=== PATIENT | female | born 1990 | race American Indian/Alaskan Native ===

== ENCOUNTER 2021-03-31 04:35 | Emergency (ER) | payer OTHER ==
--- NOTE | 2021-03-31 06:16 | Emergency Department Report ---
HPI - General Chief Complaint: Psych Time Seen by Provider: 03/31/21 06:05 - HPI HPI: Room 16 The patient is a 30-year-old female present with a chief complaint of bizarre behavior. Patient was brought in by EMS after reportedly being found with erratic behavior and crying in the middle of the road. When asked what made her come to the emergency department the patient replies "I called the police on myself." When asked why the patient states "because." When asked if she had suicidal ideation the patient replies "I guess." When asked if she had homicidal ideation patient replies "yes all of y'all." ED Past Medical Hx - Past Medical History Previous Medical History?: Yes Hx Diabetes: Yes Hx Psychiatric Treatment: (bipolar) - Surgical History Additional Surgical History: "Everything" - Family History Family history: no significant - Social History Smoking Status: Never Smoker Substance Use Type: Alcohol - Medications Home Medications: Home Medications Medication Instructions Recorded Confirmed Last Taken Type Divalproex Dr [DepaKOTE DR] 250 mg PO BID 30 Days #60 tablet 04/02/21 Unknown Rx risperiDONE [RisperDAL] 1 mg PO BID 30 Days #60 tablet 04/02/21 Unknown Rx traZODone [Desyrel] 50 mg PO QHS 30 Days #30 tab 04/02/21 Unknown Rx ED Review of Systems ROS: Stated complaint: BEHAVIORAL ISSUES Other details as noted in HPI Comment: Unobtainable due to pts medical conditions Physical Exam - Physical Exam Vital Signs: Vital Signs 03/31/21 03/31/21 03/31/21 05:04 05:14 05:34 Temperature 98.9 F 97.5 F L Pulse Rate 84 64 Respiratory 18 16 Rate Blood Pressure 129/84 106/64 [Left] O2 Sat by Pulse 99 98 100 Oximetry Physical Exam: GENERAL: The patient is well-developed well-nourished female lying on chair not appearing to be in acute distress. [] HEENT: Normocephalic. Atraumatic. Extraocular motions are intact. Patient has moist mucous membranes. NECK: Supple. Trachea midline CHEST/LUNGS: Clear to auscultation. There is no respiratory distress noted. HEART/CARDIOVASCULAR: Regular. There is no tachycardia. There is no gallop rub or murmur. ABDOMEN: Abdomen is soft, nontender. Patient has normal bowel sounds. There is no abdominal distention. SKIN: There is no rash. There is no edema. There is no diaphoresis. NEURO: The patient is awake and alert. The patient is intermittent cooperative. The patient has no focal neurologic deficits. The patient has normal speech. GCS 15 MUSCULOSKELETAL: There is no evidence of acute injury. ED Course Vital Signs 03/31/21 03/31/21 03/31/21 05:04 05:14 05:34 Temperature 98.9 F 97.5 F L Pulse Rate 84 64 Respiratory 18 16 Rate Blood Pressure 129/84 106/64 [Left] O2 Sat by Pulse 99 98 100 Oximetry - Reevaluation(s) Reevaluation #1: 03/31/21 07:01 Patient became combative and threatening to other patients and was subsequently placed in seclusion ED Medical Decision Making - Lab Data Result diagrams: 03/31/21 17:41 03/31/21 17:41 - Differential Diagnosis Bipolar disorder, suicidal ideation, homicidal ideation Critical care attestation.: If time is entered above; I have spent that time in minutes in the direct care of this critically ill patient, excluding procedure time. ED Disposition Clinical Impression: Encounter for behavioral health screening, Left knee pain, Abrasion of left knee, Encounter for medical screening examination Disposition: HOME / SELF CARE / HOMELESS Is pt being admited?: No Does the pt Need Aspirin: No Condition: Stable Additional Instructions: Rest, avoid heavy lifting and strenuous physical activities. Alternate ice packs and heat packs as needed for physical pain. Patient may take over-the- counter ibuprofen and/or acetaminophen as needed for physical pain. Follow-up with an outpatient primary care doctor within the next month. Follow- up with an outpatient psychiatrist and outpatient psychiatric resources within the next 2 weeks. Please return to the emergency room right away with new pain, worsened pain, migration of pain, rectal vomiting, change in mental status, confusion, i nability to tolerate liquid feeds, homicidality, suicidality, change in mental status, or any new, worsened or different symptoms not present on the initial emergency room evaluation. OUTPATIENT MENTAL HEALTH RESOURCES [facility], [facility] Dimas Perea MD: [address] [place] [address] [place] [address] [facility]: [facility] [address] [place] [address] [place] [address] [phone] [facility]: [facility]: [address] [facility] [place] [address] [facility] [address] [facility]: Brett Tripp MD: [address] [facility] [address] [facility] [address] [facility]: [address] [place], [place] [id number] [phone] [place] CRISIS AND ACCESS LINE: Professional and Agency Contacts To help Resolve Crises (26/12) [place] Crisis Line: Suicide Prevention Line: Crisis Text Line: Text START to 856683 Emergency: 911 Outpatient COMMUNITY Behavioral Health Resources: [facility]: [facility] [address] [place], [place] [address] [facility] [address] [place] [address] Monday thru Monday - 8am - 5pm Call to schedule an assessment for mental health and substance abuse programs [facility] Address: [address] [place], [place] Monday thru Monday- 7am-2pm [facility] Address: [address] [place], [place] Monday thru Monday: 8:30AM-5PM Prescriptions: Divalproex Dr [DepaKOTE DR] 250 mg PO BID 30 Days #60 tablet traZODone [Desyrel] 50 mg PO QHS 30 Days #30 tab risperiDONE [RisperDAL] 1 mg PO BID 30 Days #60 tablet Referrals: [facility] [Outside[facility] - 3-5 Days [facility]
[2021-03-31 07:04] LABS: Bilirubin,Urine NEG (Negative); Blood,Urine NEG (Negative); Color,Urine Yellow (Yellow); Protein,Urine <15 mg/dL mg/dL (Negative); RBC,Urine < 1.0 /HPF (0.0-6.0); Urobilinogen,Urine < 2.0 mg/dL (<2.0)
[2021-03-31 07:13] LABS: Amphetamine Screen,Urine Negative; Benzodiazepines Screen,Urine Negative; Cannabinoid Screen,Urine Negative; Cocaine Screen,Urine Negative; Methadone Screen,Urine Negative; Opiate Screen,Urine Negative
[2021-03-31] MEDS: diphenhydrAMINE 50 MG/ML VIAL IM PRN (09:05)
[2021-03-31] MEDS: LORazepam 2 MG/ML VIAL IM PRN (09:05)
[2021-03-31] MEDS: HALOPERIDOL LACTATE 5 MG/1 ML INJ IM PRN (09:05)
--- NOTE | 2021-03-31 10:43 | Consultation ---
History of Present Illness - Reason for Consult Consult date: 03/31/21 Reason for consult: psychosis - History of Present Psychiatric Illness Per ER Note: The patient is a 30-year-old female present with a chief complaint of bizarre behavior. Patient was brought in by EMS after reportedly being found with erratic behavior and crying in the middle of the road. When asked what made her come to the emergency department the patient replies "I called the police on myself." When asked why the patient states "because." When asked if she had suicidal ideation the patient replies "I guess." When asked if she had homicidal ideation patient replies "yes all of y'all." The patient was seen today. She is in the isolation room, yelling, cussing and acting bizarrely. The sitter says the patient has been combative with everybody and advised me not to open the door. The patient says "I have a head cold and I'm suing." She is bucking her eyes and pacing back and forth. PAST PSYCHIATRIC HISTORY: Unable to assess PAST MEDICAL HISTORY: None documented Family Psychiatric History: None reported or documented SOCIAL HISTORY Unable to assess REVIEW OF SYSTEMS Unable to assess MENTAL STATUS EXAMINATION Unable to assess Assessment and Plan (1) Bipolar Disorder TREATMENT PLAN [address] 125mg po BID Risperidone 0.5mg po BID Trazdone 50mg po qhs Sitter: per primary Medical: per primary Disposition: Recommend acute psychiatric inpatient treatment Case staffed with Dr. Munguia Medications and Allergies Allergies Allergy/AdvReac Type Severity Reaction Status Date / Time No Known Allergies Allergy Verified 03/31/21 05:05 Active Meds: Active Medications Diphenhydramine HCl (Diphenhydramine 50 Mg/Ml Vial) 50 mg IM Q6H PRN PRN Reason: Agitation Last Admin: 03/31/21 09:05 Dose: 50 mg Documented by: Haloperidol Lactate (Haloperidol Lactate 5 Mg/1 Ml Inj) 10 mg IM Q8H PRN PRN Reason: Agitation Last Admin: 03/31/21 09:05 Dose: 10 mg Documented by: Lorazepam (Lorazepam 2 Mg/Ml Vial) 2 mg IM Q8H PRN PRN Reason: Agitation Last Admin: 03/31/21 09:05 Dose: 2 mg Documented by: Mental Status Exam - Vital signs Last Vital Signs Temp 97.5 F L 03/31/21 05:34 Pulse 64 03/31/21 05:34 Resp 16 03/31/21 05:34 BP 106/64 03/31/21 05:34 Pulse Ox 100 03/31/21 09:32 Results All other labs normal.
[2021-03-31] MEDS: risperiDONE 0.25 MG TAB PO SCH ×2 (11:17→22:22)
[2021-03-31] MEDS: DIVALPROEX DR 125 MG TAB PO SCH ×2 (11:17→22:21)
[2021-03-31 17:57] LABS: Basophils % (Auto) 0.2 % (0.0-1.8); Eosinophils # (Auto) 0.3 K/mm3 (0.0-0.4); Eosinophils % (Auto) 3.9 % (0.0-4.3); Hematocrit 42.8 % (30.3-42.9); Hemoglobin 14.1 gm/dl (10.1-14.3); Lymphocytes % (Auto) 24.1 % (13.4-35.0); Mean Corpuscular HGB Conc 33 % (30-34); Mean Corpuscular Volume 91 fl (79-97); Monocytes # (Auto) 0.7 K/mm3 (0.0-0.8); Monocytes % (Auto) 8.6 % (0.0-7.3); Platelet Count 388 K/mm3 (140-440); Red Blood Count 4.68 M/mm3 (3.65-5.03); Red Cell Distribution Width 13.5 % (13.2-15.2)
[2021-03-31 18:17] LABS: BUN/Creatinine Ratio 13; Blood Urea Nitrogen 10 mg/dL (7-17); Calcium 9.2 mg/dL (8.4-10.2); Hemolysis Index 5
[2021-03-31] MEDS: traZODone 50 MG TAB PO SCH (22:21)
[2021-04-01] MEDS: LORazepam 2 MG/ML VIAL IM PRN (07:43)
[2021-04-01] MEDS: diphenhydrAMINE 50 MG/ML VIAL IM PRN (07:44)
[2021-04-01] MEDS: HALOPERIDOL LACTATE 5 MG/1 ML INJ IM PRN (07:44)
--- NOTE | 2021-04-01 08:45 | Progress Note ---
Subjective - Reason for Consult Consult date: 04/01/21 Reason for consult: psychosis - Chief Complaint Chief complaint: The patient was seen today. She is talking loudly, rude and cussing. She acts somewhat bizarre. She says I'm not doing well. She is sarcastic and argumentative. The patient is paranoid and says she's not talking any meds because she doesn't trust people here. She says she was brought to the hospital because she was driving in the street and could not get anyone to call the dispatcher. The patient states she is legally blind. When asking the patient was she hearing voices she replied "very much." She denies SI/HI. REVIEW OF SYSTEMS Unable to assess MENTAL STATUS EXAMINATION Unable to assess Assessment and Plan (1) Bipolar Disorder TREATMENT PLAN [address] 250mg po BID Increase Risperidone 1mg po BID Trazdone 50mg po qhs Sitter: per primary Medical: per primary Disposition: Recommend acute psychiatric inpatient treatment Case staffed with Dr. Munguia Mental Status Exam - Vital signs Last Vital Signs Temp 98 F 03/31/21 18:46 Pulse 89 03/31/21 18:46 Resp 18 03/31/21 18:46 BP 137/92 03/31/21 18:46 Pulse Ox 100 03/31/21 18:46
[2021-04-01] MEDS ORDERED: ZIPRASIDONE MESYLATE 20 MG VIAL IM ONE ×2 (10:25→18:03)
--- NOTE | 2021-04-01 10:25 | Event Note ---
Date: 04/01/21 Patient seen by our psychiatry team as well as myself. Patient still very agitated and difficult to control. Prior to my arrival at the hospital patient already received Haldol Ativan Benadryl and was still very verbally aggressive and showing poor control in the emergency department. We will give the patient IM shot of 20 of Geodon. The patient continues to exhibit uncontrollable behavior seclusion may be necessary. Psychiatry note as follows: Psychiatry Progress Note Patient Name: TORI TRAMMELL Date of : 89 Patient Status: Emergency Emergency Provider: SANCHEZ STEINER Date: 04/01/21 08:43 Initialization Date: 04/01/21 08:43 Subjective - Reason for Consult Consult date: 04/01/21 Reason for consult: psychosis - Chief Complaint Chief complaint: The patient was seen today. She is talking loudly, rude and cussing. She acts somewhat bizarre. She says I'm not doing well. She is sarcastic and argumentative. The patient is paranoid and says she's not talking any meds because she doesn't trust people here. She says she was brought to the hospital because she was driving in the street and could not get anyone to call the dispatcher. The patient states she is legally blind. When asking the patient was she hearing voices she replied "very much." She denies SI/HI. REVIEW OF SYSTEMS Unable to assess MENTAL STATUS EXAMINATION Unable to assess Assessment and Plan (1) Bipolar Disorder TREATMENT PLAN [address] 250mg po BID Increase Risperidone 1mg po BID Trazdone 50mg po qhs Sitter: per primary Medical: per primary Disposition: Recommend acute psychiatric inpatient treatment Case staffed with Dr. Munguia
[2021-04-01] MEDS: DIVALPROEX DR 250 MG TAB PO SCH ×2 (11:08→23:14)
[2021-04-01] MEDS: risperiDONE 1 MG TAB PO SCH ×2 (11:08→23:14)
[2021-04-01] MEDS ORDERED: NALOXONE 0.4 MG/1 ML INJ ONE (15:29)
[2021-04-01] MEDS ORDERED: SODIUM CHLORIDE 0.9% 1000 ML 1,000 ML ONE (17:00)
[2021-04-01] MEDS: traZODone 50 MG TAB PO SCH (23:14)
[2021-04-02] MEDS: HALOPERIDOL LACTATE 5 MG/1 ML INJ IM PRN (02:00)
--- NOTE | 2021-04-02 11:07 | Event Note ---
Date: 04/02/21 The patient was evaluated in the emergency department for symptoms described in the history of present illness. He/she was evaluated in the context of the global COVID-19 pandemic, which necessitated consideration that the patient might be at risk for infection with the virus that causes COVID-19. Institutional protocols and algorithms that pertain to the evaluation of patients at risk for COVID-19 are in a state of rapid change based on information released by regulatory bodies including the CDC and federal and state organizations. These policies and algorithms were followed during the patient's care in the emergency department. Please note that these policies, procedures and recommendations changed on a rapid basis. Patient seen and examined. She is awake, and talkative.. She complains of left-sided knee pain. She has a left-sided knee abrasion. She has tenderness in the anterior and lateral joint line of the knee. She is able to walk with a slight limp. She states she is up-to-date with tetanus vaccination. X-ray of the left knee is ordered. Laboratory studies, vital signs, ER documentation, psychiatric documentation and nursing documentation reviewed and appreciated. Nursing and care team endorse that the patient remains psychotic, and somewhat agitated. However she is cooperative at this time, and not nicholas lent. Psychiatric input reviewed and appreciated, their recommendations are appreciated. 04/02/2021; 13: 24 PM X-ray of the knee negative for acute findings. Psychiatry team has recommended discharge. The patient was medically cleared on her initial ER evaluation. Discharge with outpatient follow-up Left knee-3 views INDICATION: left knee pain. COMPARISON: None. IMPRESSION: No acute osseous abnormality. Soft tissues are normal. Normal alignment. No significant DJD. Signer Name: August Smith MD Signed: 04/02/2021 11:15 AM Workstation Name: [id number] Vital Signs 03/31/21 03/31/21 03/31/21 05:04 05:14 05:34 Temperature 98.9 F 97.5 F L Pulse Rate 84 64 Respiratory 18 16 Rate Blood Pressure 129/84 106/64 [Left] O2 Sat by Pulse 99 98 100 Oximetry 03/31/21 03/31/21 04/01/21 09:32 18:46 07:30 Temperature 98 F 98.5 F Pulse Rate 89 93 H Respiratory 18 18 Rate Blood Pressure 137/92 139/81 [Left] O2 Sat by Pulse 100 100 100 Oximetry 04/02/21 02:57 Temperature 98.3 F Pulse Rate 82 Respiratory 18 Rate Blood Pressure 143/78 [Left] O2 Sat by Pulse 97 Oximetry Lab Results 03/31/21 03/31/21 03/31/21 Range/Units 17:41 17:41 17:41 WBC 8.2 (4.5-11.0) K/mm3 RBC 4.68 (3.65-5.03) M/mm3 Hgb 14.1 (10.1-14.3) gm/dl Hct 42.8 (30.3-42.9) % MCV 91 (79-97) fl MCH 30 (28-32) pg MCHC 33 (30-34) % RDW 13.5 (13.2-15.2) % Plt Count 388 (140-440) K/mm3 Lymph % (Auto) 24.1 (13.4-35.0) % [place] % (Auto) 8.6 H (0.0-7.3) % Eos % (Auto) 3.9 (0.0-4.3) % Baso % (Auto) 0.2 (0.0-1.8) % Lymph # (Auto) 2.0 (1.2-5.4) K/mm3 [place] # (Auto) 0.7 (0.0-0.8) K/mm3 Eos # (Auto) 0.3 (0.0-0.4) K/mm3 Baso # (Auto) 0.0 (0.0-0.1) K/mm3 Seg Neutrophils % 63.2 (40.0-70.0) % Seg Neutrophils # 5.2 (1.8-7.7) K/mm3 Sodium 140 (137-145) mmol/L Potassium 4.1 (3.6-5.0) mmol/L Chloride 102.8 (98-107) mmol/L Carbon Dioxide 24 (22-30) mmol/L Anion Gap 17 mmol/L BUN 10 (7-17) mg/dL Creatinine 0.8 (0.6-1.2) mg/dL Estimated GFR > 60 ml/min BUN/Creatinine Ratio 13 % Glucose 110 H (65-100) mg/dL POC Glucose (70-105) mg/dL Calcium 9.2 (8.4-10.2) mg/dL HCG, Qual (Negative) Urine Color (Yellow) Urine Turbidity (Clear) Urine pH (5.0-7.0) Ur Specific [place] (1.003-1.030) Urine Protein (Negative) mg/dL Urine Glucose (UA) (Negative) mg/dL Urine Ketones (Negative) mg/dL Urine Blood (Negative) Urine Nitrite (Negative) Urine Bilirubin (Negative) Urine Urobilinogen (<2.0) mg/dL Ur Leukocyte Esterase (Negative) Urine WBC (Auto) (0.0-6.0) /HPF Urine RBC (Auto) (0.0-6.0) /HPF U Epithel Cells (Auto) (0-13.0) /HPF Salicylates < 0.3 L (2.8-20.0) mg/dL Urine Opiates Screen Urine Methadone Screen Acetaminophen (10.0-30.0) ug/mL Ur Barbiturates Screen Ur Phencyclidine Scrn Ur Amphetamines Screen U Benzodiazepines Scrn Urine Cocaine Screen U Marijuana (THC) Screen Drugs of Abuse Note Plasma/Serum Alcohol (0-0.07) % 03/31/21 03/31/21 03/31/21 Range/Units 17:41 17:41 Unknown WBC (4.5-11.0) K/mm3 RBC (3.65-5.03) M/mm3 Hgb (10.1-14.3) gm/dl Hct (30.3-42.9) % MCV (79-97) fl MCH (28-32) pg MCHC (30-34) % RDW (13.2-15.2) % Plt Count (140-440) K/mm3 Lymph % (Auto) (13.4-35.0) % [place] % (Auto) (0.0-7.3) % Eos % (Auto) (0.0-4.3) % Baso % (Auto) (0.0-1.8) % Lymph # (Auto) (1.2-5.4) K/mm3 [place] # (Auto) (0.0-0.8) K/mm3 Eos # (Auto) (0.0-0.4) K/mm3 Baso # (Auto) (0.0-0.1) K/mm3 Seg Neutrophils % (40.0-70.0) % Seg Neutrophils # (1.8-7.7) K/mm3 Sodium (137-145) mmol/L Potassium (3.6-5.0) mmol/L Chloride (98-107) mmol/L Carbon Dioxide (22-30) mmol/L Anion Gap mmol/L BUN (7-17) mg/dL Creatinine (0.6-1.2) mg/dL Estimated GFR ml/min BUN/Creatinine Ratio % Glucose (65-100) mg/dL POC Glucose (70-105) mg/dL Calcium (8.4-10.2) mg/dL HCG, Qual (Negative) Urine Color Yellow (Yellow) Urine Turbidity Clear (Clear) Urine pH 6.0 (5.0-7.0) Ur Specific Hen[place] 1.012 (1.003-1.030) Urine Protein <15 mg/dl (Negative) mg/dL Urine Glucose (UA) Neg (Negative) mg/dL Urine Ketones Neg (Negative) mg/dL Urine Blood Neg (Negative) Urine Nitrite Neg (Negative) Urine Bilirubin Neg (Negative) Urine Urobilinogen < 2.0 (<2.0) mg/dL Ur Leukocyte Esterase Neg (Negative) Urine WBC (Auto) 1.0 (0.0-6.0) /HPF Urine RBC (Auto) < 1.0 (0.0-6.0) /HPF U Epithel Cells (Auto) 1.0 (0-13.0) /HPF Salicylates (2.8-20.0) mg/dL Urine Opiates Screen Urine Methadone Screen Acetaminophen 5.0 L (10.0-30.0) ug/mL Ur Barbiturates Screen Ur Phencyclidine Scrn Ur Amphetamines Screen U Benzodiazepines Scrn Urine Cocaine Screen U Marijuana (THC) Screen Drugs of Abuse Note Plasma/Serum Alcohol < 0.01 (0-0.07) % 03/31/21 03/31/21 04/02/21 Range/Units Unknown Unknown 08:56 WBC (4.5-11.0) K/mm3 RBC (3.65-5.03) M/mm3 Hgb (10.1-14.3) gm/dl Hct (30.3-42.9) % MCV (79-97) fl MCH (28-32) pg MCHC (30-34) % RDW (13.2-15.2) % Plt Count (140-440) K/mm3 Lymph % (Auto) (13.4-35.0) % [place] % (Auto) (0.0-7.3) % Eos % (Auto) (0.0-4.3) % Baso % (Auto) (0.0-1.8) % Lymph # (Auto) (1.2-5.4) K/mm3 [place] # (Auto) (0.0-0.8) K/mm3 Eos # (Auto) (0.0-0.4) K/mm3 Baso # (Auto) (0.0-0.1) K/mm3 Seg Neutrophils % (40.0-70.0) % Seg Neutrophils # (1.8-7.7) K/mm3 Sodium (137-145) mmol/L Potassium (3.6-5.0) mmol/L Chloride (98-107) mmol/L Carbon Dioxide (22-30) mmol/L Anion Gap mmol/L BUN (7-17) mg/dL Creatinine (0.6-1.2) mg/dL Estimated GFR ml/min BUN/Creatinine Ratio % Glucose (65-100) mg/dL POC Glucose 86 (70-105) mg/dL Calcium (8.4-10.2) mg/dL HCG, Qual Negative (Negative) Urine Color (Yellow) Urine Turbidity (Clear) Urine pH (5.0-7.0) Ur Specific [place] (1.003-1.030) Urine Protein (Negative) mg/dL Urine Glucose (UA) (Negative) mg/dL Urine Ketones (Negative) mg/dL Urine Blood (Negative) Urine Nitrite (Negative) Urine Bilirubin (Negative) Urine Urobilinogen (<2.0) mg/dL Ur Leukocyte Esterase (Negative) Urine WBC (Auto) (0.0-6.0) /HPF Urine RBC (Auto) (0.0-6.0) /HPF U Epithel Cells (Auto) (0-13.0) /HPF Salicylates (2.8-20.0) mg/dL Urine Opiates Screen Negative Urine Methadone Screen Negative Acetaminophen (10.0-30.0) ug/mL Ur Barbiturates Screen Negative Ur Phencyclidine Scrn Negative Ur Amphetamines Screen Negative U Benzodiazepines Scrn Negative Urine Cocaine Screen Negative U Marijuana (THC) Screen Negative Drugs of Abuse Note Disclamer Plasma/Serum Alcohol (0-0.07) %
--- NOTE | 2021-04-02 12:19 | XRay Report ---
Left knee-3 views INDICATION: left knee pain. COMPARISON: None. IMPRESSION: No acute osseous abnormality. Soft tissues are normal. Normal alignment. No significa nt DJD. Signer Name: August Smith MD Signed: 04/02/2021 12:15 PM Workstation Name: [id number]
--- NOTE | 2021-04-02 12:30 | Progress Note ---
Subjective - Reason for Consult Consult date: 04/02/21 Reason for consult: mental health evaluation - Chief Complaint Chief complaint: The patient was seen today. She is talkative and loud. The patient denies any current suicidal/homicidal ideation and denies hallucination. No aggressive behaviors reported. REVIEW OF SYSTEMS Unable to assess MENTAL STATUS EXAMINATION Unable to assess Assessment and Plan (1) Bipolar Disorder TREATMENT PLAN Discontinue [address] 250mg po BID Increase Risperidone 1mg po BID Trazdone 50mg po qhs Sitter: per primary Medical: per primary Disposition:Do not recommend acute psychiatric inpatient treatment. Product Scientist will provide patient with psychiatry outpatient resources. Will sign off. Case staffed with Dr. Munguia Mental Status Exam - Vital signs Last Vital Signs Temp 98.3 F 04/02/21 02:57 Pulse 82 04/02/21 02:57 Resp 20 04/02/21 02:57 BP 143/78 04/02/21 02:57 Pulse Ox 97 04/02/21 02:57
[2021-04-02] MEDS: DIVALPROEX DR 250 MG TAB PO SCH (12:34)
[2021-04-02] MEDS: risperiDONE 1 MG TAB PO SCH (12:35)
[2021-04-02 13:18] VITALS: BP 116/68
== END 2021-04-02 13:24 | disposition home or self-care (01) ==
LOC: EEVIPCON 04:35 → ED 04:35
DX: S80.212A Abrasion, left knee, initial encounter (principal); F31.9 Bipolar disorder, unspecified; Z13.30 Encounter for screening examination for mental health and behavioral disorders, unspecified; E11.8 Type 2 diabetes mellitus with unspecified complications; X58.XXXA Exposure to other specified factors, initial encounter; Y93.89 Activity, other specified; Y92.89 Other specified places as the place of occurrence of the external cause; Y99.8 Other external cause status
CPT/HCPCS: 36415; 73562; 80048; 80307; 81001; 82962; 84703; 85025; 96372; 99285; J1200; J1630; J2060; J2310; J3486; J7030; 80320; G0480

== ENCOUNTER 2021-04-10 16:20 | Emergency (ER) | payer OTHER ==
[2021-04-10] MEDS ORDERED: ZIPRASIDONE MESYLATE 20 MG VIAL IM ONE ×2 (16:22→16:36)
[2021-04-10 17:31] LABS: Basophils % (Auto) 0.3 % (0.0-1.8); Eosinophils # (Auto) 0.1 K/mm3 (0.0-0.4); Eosinophils % (Auto) 2.3 % (0.0-4.3); Hematocrit 38.6 % (30.3-42.9); Hemoglobin 12.9 gm/dl (10.1-14.3); Lymphocytes # (Auto) 0.8 K/mm3 (1.2-5.4); Lymphocytes % (Auto) 14.5 % (13.4-35.0); Mean Corpuscular HGB Conc 33 % (30-34); Mean Corpuscular Volume 90 fl (79-97); Monocytes # (Auto) 0.4 K/mm3 (0.0-0.8); Monocytes % (Auto) 7.9 % (0.0-7.3); Platelet Count 334 K/mm3 (140-440); Red Blood Count 4.29 M/mm3 (3.65-5.03); Red Cell Distribution Width 13.2 % (13.2-15.2)
[2021-04-10 17:55] LABS: Alanine Aminotransferase 28 units/L (7-56); BUN/Creatinine Ratio 7; Blood Urea Nitrogen 6 mg/dL (7-17); Calcium 8.8 mg/dL (8.4-10.2); Hemolysis Index 14
[2021-04-10 18:20] LABS: Amphetamine Screen,Urine Negative; Benzodiazepines Screen,Urine Negative; Cocaine Screen,Urine Negative; Methadone Screen,Urine Negative; Opiate Screen,Urine Negative
[2021-04-10 18:36] LABS: Mucus,Urine 2+ /HPF
[2021-04-10 18:40] LABS: Color,Urine Yellow (Yellow)
[2021-04-10 18:41] LABS: Bilirubin,Urine Negative (Negative); Blood,Urine Small (Negative); Urobilinogen,Urine < 2.0 mg/dL (<2.0)
[2021-04-10 18:49] LABS: Cannabinoid Screen,Urine Positive
--- NOTE | 2021-04-10 19:18 | Emergency Department Report ---
ED Psych HPI - General Chief Complaint: Psych Stated Complaint: 03/17 Time Seen by Provider: 04/10/21 16:35 Source: patient, EMS Mode of arrival: Ambulatory - History of Present Illness Initial Comments: Chief complaint abnormal behavior HPI: This is a 30-year-old female with history of bipolar disorder, diabetes mellitus who presents with abnormal behavior. Police officers presented twice to patient's home. Earlier in the day, patient called police. She accused her on stealing money. On told police officers that she had abnormal behavior. Police return to the home after being called again. Her behavior escalated. Police officers noticed that she was beginning persons not present. She was extremely agitated and aggressive. She arrived in handcuffs. She was recently evaluated at this hospital for bipolar disorder. Patient will not cooperate with history taking. 1013 form completed by CARLOS in [facility] Complaint: altered mental status -: Gradual, days(s) (Over the past several days) Associated Psychiatric Symptoms: racing thoughts, auditory hallucinations Quality: constant Improves With: none Worsens With: none Context: other Treatments Prior to Arrival: physical restraints (Handcuffs per police officers) - Related Data Previous Rx's Medication Instructions Recorded Last Taken Type Divalproex Dr [DepaKOTE DR] 250 mg PO BID 30 Days #60 tablet 04/02/21 Unknown Rx risperiDONE [RisperDAL] 1 mg PO BID 30 Days #60 tablet 04/02/21 Unknown Rx traZODone [Desyrel] 50 mg PO QHS 30 Days #30 tab 04/02/21 Unknown Rx Allergies Allergy/AdvReac Type Severity Reaction Status Date / Time No Known Allergies Allergy Verified 03/31/21 05:05 ED Review of Systems ROS: Stated complaint: 03/17 Other details as noted in HPI Comment: Unobtainable due to pts medical conditions (Patient would not guilherme ate) ED Past Medical Hx - Past Medical History Previous Medical History?: Yes Hx Diabetes: Yes Hx Psychiatric Treatment: Yes (bipolar) - Surgical History Additional Surgical History: "Everything" - Social History Smoking Status: Never Smoker Substance Use Type: Alcohol - Medications Home Medications: Home Medications Medication Instructions Recorded Confirmed Last Taken Type Divalproex Dr [DepaKOTE DR] 250 mg PO BID 30 Days #60 tablet 04/02/21 Unknown Rx risperiDONE [RisperDAL] 1 mg PO BID 30 Days #60 tablet 04/02/21 Unknown Rx traZODone [Desyrel] 50 mg PO QHS 30 Days #30 tab 04/02/21 Unknown Rx ED Physical Exam - General Limitations: Altered Mental Status General appearance: alert, other (Agitated hyperactive walking around the department with hands cuffed behind her back) - Head Head exam: Present: atraumatic, normocephalic - Eye Eye exam: Present: normal appearance - ENT ENT exam: Present: mucous membranes moist - Neck Neck exam: Present: normal inspection, full ROM - Respiratory Respiratory exam: Present: normal lung sounds bilaterally. Absent: respiratory distress, wheezes, rales, rhonchi - Cardiovascular Cardiovascular Exam: Present: regular rate, normal rhythm, normal heart sounds. Absent: systolic murmur, diastolic murmur, rubs, gallop - GI/Abdominal GI/Abdominal exam: Present: soft, normal bowel sounds. Absent: distended, tenderness, guarding, rebound - Extremities Exam Extremities exam: Present: normal inspection - Back Exam Back exam: Present: normal inspection - Neurological Exam Neurological exam: Present: alert, other (Oriented to place and name) - Psychiatric Psychiatric exam: Present: agitated, manic, other (Pressured circular speech, she speaks on multiple subjects) - Skin Skin exam: Present: warm, dry, intact, normal color. Absent: rash ED Course Vital Signs 04/10/21 04/10/21 04/11/21 19:02 23:23 02:58 Temperature 98.0 F Pulse Rate 76 76 Respiratory 18 16 Rate Blood Pressure 120/93 119/80 [Right] O2 Sat by Pulse 97 98 100 Oximetry 04/11/21 09:01 Temperature Pulse Rate Respiratory Rate Blood Pressure [Right] O2 Sat by Pulse 95 Oximetry - Reevaluation(s) Reevaluation #1: 04/11/21 11:31 I evaluated Ms. Chavez today. She is alert oriented x4. She is comfortable. She denies suicidal homicidal ideation. She denies any intent to harm. I agree with mental health team's assessment. She is stable for discharge. She is pleasant and cooperative. I have provided discharge documentation disposition. ED Medical Decision Making - Lab Data Result diagrams: 04/10/21 16:45 04/10/21 16:45 Laboratory Results - last 24 hr 04/10/21 04/10/21 04/10/21 16:45 16:45 16:45 WBC 5.3 RBC 4.29 Hgb 12.9 Hct 38.6 MCV 90 MCH 30 MCHC 33 RDW 13.2 Plt Count 334 Lymph % (Auto) 14.5 [place] % (Auto) 7.9 H Eos % (Auto) 2.3 Baso % (Auto) 0.3 Lymph # (Auto) 0.8 L [place] # (Auto) 0.4 Eos # (Auto) 0.1 Baso # (Auto) 0.0 Seg Neutrophils % 75.0 H Seg Neutrophils # 4.0 Sodium 142 Potassium 3.6 Chloride 107.0 Carbon Dioxide 21 L Anion Gap 18 BUN 6 L Creatinine 0.9 Estimated GFR > 60 BUN/Creatinine Ratio 7 Glucose 185 H Calcium 8.8 Total Bilirubin 0.50 AST 26 ALT 28 Alkaline Phosphatase 72 Total Protein 7.4 Albumin 4.0 Albumin/Globulin Ratio 1.2 HCG, Qual Urine Color Urine Turbidity Urine pH Ur Specific [place] Urine Protein Urine Glucose (UA) Urine Ketones Urine Blood Urine Nitrite Ur Reducing Substances Urine Bilirubin Urine Ictotest Urine Urobilinogen Ur Leukocyte Esterase Urine WBC (Auto) Urine RBC (Auto) U Epithel Cells (Auto) Urine Mucus Salicylates < 0.3 L Urine Opiates Screen Urine Methadone Screen Acetaminophen Ur Barbiturates Screen Ur Phencyclidine Scrn Ur Amphetamines Screen U Benzodiazepines Scrn Urine Cocaine Screen U Marijuana (THC) Screen Drugs of Abuse Note Plasma/Serum Alcohol 04/10/21 04/10/21 04/10/21 16:45 16:45 16:45 WBC RBC Hgb Hct MCV MCH MCHC RDW Plt Count Lymph % (Auto) [place] % (Auto) Eos % (Auto) Baso % (Auto) Lymph # (Auto) [place] # (Auto) Eos # (Auto) Baso # (Auto) Seg Neutrophils % Seg Neutrophils # Sodium Potassium Chloride Carbon Dioxide Anion Gap BUN Creatinine Estimated GFR BUN/Creatinine Ratio Glucose Calcium Total Bilirubin AST ALT Alkaline Phosphatase Total Protein Albumin Albumin/Globulin Ratio HCG, Qual Negative Urine Color Urine Turbidity Urine pH Ur Specific [place] Urine Protein Urine Glucose (UA) Urine Ketones Urine Blood Urine Nitrite Ur Reducing Substances Urine Bilirubin Urine Ictotest Urine Urobilinogen Ur Leukocyte Esterase Urine WBC (Auto) Urine RBC (Auto) U Epithel Cells (Auto) Urine Mucus Salicylates Urine Opiates Screen Urine Methadone Screen Acetaminophen 5.0 L Ur Barbiturates Screen Ur Phencyclidine Scrn Ur Amphetamines Screen U Benzodiazepines Scrn Urine Cocaine Screen U Marijuana (THC) Screen Drugs of Abuse Note Plasma/Serum Alcohol < 0.01 04/10/21 04/10/21 Unknown Unknown WBC RBC Hgb Hct MCV MCH MCHC RDW Plt Count Lymph % (Auto) [place] % (Auto) Eos % (Auto) Baso % (Auto) Lymph # (Auto) [place] # (Auto) Eos # (Auto) Baso # (Auto) Seg Neutrophils % Seg Neutrophils # Sodium Potassium Chloride Carbon Dioxide Anion Gap BUN Creatinine Estimated GFR BUN/Creatinine Ratio Glucose Calcium Total Bilirubin AST ALT Alkaline Phosphatase Total Protein Albumin Albumin/Globulin Ratio HCG, Qual Urine Color Yellow Urine Turbidity Hazy Urine pH 6.0 Ur Specific [place] 1.020 Urine Protein 30 mg/dl Urine Glucose (UA) Negative Urine Ketones Negative Urine Blood Small A Urine Nitrite Negative Ur Reducing Substances Not Reportable Urine Bilirubin Negative Urine Ictotest Not Reportable Urine Urobilinogen < 2.0 Ur Leukocyte Esterase Negative Urine WBC (Auto) 12.0 H Urine RBC (Auto) 4.0 U Epithel Cells (Auto) 31.0 H Urine Mucus 2+ Salicylates Urine Opiates Screen Negative Urine Methadone Screen Negative Acetaminophen Ur Barbiturates Screen Negative Ur Phencyclidine Scrn Negative Ur Amphetamines Screen Negative U Benzodiazepines Scrn Negative Urine Cocaine Screen Negative U Marijuana (THC) Screen Positive Drugs of Abuse Note Disclamer Plasma/Serum Alcohol Laboratory Results - last 24 hr 04/10/21 04/10/21 04/10/21 16:45 16:45 16:45 WBC 5.3 RBC 4.29 Hgb 12.9 Hct 38.6 MCV 90 MCH 30 MCHC 33 RDW 13.2 Plt Count 334 Lymph % (Auto) 14.5 [place] % (Auto) 7.9 H Eos % (Auto) 2.3 Baso % (Auto) 0.3 Lymph # (Auto) 0.8 L [place] # (Auto) 0.4 Eos # (Auto) 0.1 Baso # (Auto) 0.0 Seg Neutrophils % 75.0 H Seg Neutrophils # 4.0 Sodium 142 Potassium 3.6 Chloride 107.0 Carbon Dioxide 21 L Anion Gap 18 BUN 6 L Creatinine 0.9 Estimated GFR > 60 BUN/Creatinine Ratio 7 Glucose 185 H Calcium 8.8 Total Bilirubin 0.50 AST 26 ALT 28 Alkaline Phosphatase 72 Total Protein 7.4 Albumin 4.0 Albumin/Globulin Ratio 1.2 HCG, Qual Urine Color Urine Turbidity Urine pH Ur Specific [place] Urine Protein Urine Glucose (UA) Urine Ketones Urine Blood Urine Nitrite Ur Reducing Substances Urine Bilirubin Urine Ictotest Urine Urobilinogen Ur Leukocyte Esterase Urine WBC (Auto) Urine RBC (Auto) U Epithel Cells (Auto) Urine Mucus Salicylates < 0.3 L Urine Opiates Screen Urine Methadone Screen Acetaminophen Ur Barbiturates Screen Ur Phencyclidine Scrn Ur Amphetamines Screen U Benzodiazepines Scrn Urine Cocaine Screen U Marijuana (THC) Screen Drugs of Abuse Note Plasma/Serum Alcohol 04/10/21 04/10/21 04/10/21 16:45 16:45 16:45 WBC RBC Hgb Hct MCV MCH MCHC RDW Plt Count Lymph % (Auto) [place] % (Auto) Eos % (Auto) Baso % (Auto) Lymph # (Auto) [place] # (Auto) Eos # (Auto) Baso # (Auto) Seg Neutrophils % Seg Neutrophils # Sodium Potassium Chloride Carbon Dioxide Anion Gap BUN Creatinine Estimated GFR BUN/Creatinine Ratio Glucose Calcium Total Bilirubin AST ALT Alkaline Phosphatase Total Protein Albumin Albumin/Globulin Ratio HCG, Qual Negative Urine Color Urine Turbidity Urine pH Ur Specific [place] Urine Protein Urine Glucose (UA) Urine Ketones Urine Blood Urine Nitrite Ur Reducing Substances Urine Bilirubin Urine Ictotest Urine Urobilinogen Ur Leukocyte Esterase Urine WBC (Auto) Urine RBC (Auto) U Epithel Cells (Auto) Urine Mucus Salicylates Urine Opiates Screen Urine Methadone Screen Acetaminophen 5.0 L Ur Barbiturates Screen Ur Phencyclidine Scrn Ur Amphetamines Screen U Benzodiazepines Scrn Urine Cocaine Screen U Marijuana (THC) Screen Drugs of Abuse Note Plasma/Serum Alcohol < 0.01 04/10/21 04/10/21 Unknown Unknown WBC RBC Hgb Hct MCV MCH MCHC RDW Plt Count Lymph % (Auto) [place] % (Auto) Eos % (Auto) Baso % (Auto) Lymph # (Auto) [place] # (Auto) Eos # (Auto) Baso # (Auto) Seg Neutrophils % Seg Neutrophils # Sodium Potassium Chloride Carbon Dioxide Anion Gap BUN Creatinine Estimated GFR BUN/Creatinine Ratio Glucose Calcium Total Bilirubin AST ALT Alkaline Phosphatase Total Protein Albumin Albumin/Globulin Ratio HCG, Qual Urine Color Yellow Urine Turbidity Hazy Urine pH 6.0 Ur Specific [place] 1.020 Urine Protein 30 mg/dl Urine Glucose (UA) Negative Urine Ketones Negative Urine Blood Small A Urine Nitrite Negative Ur Reducing Substances Not Reportable Urine Bilirubin Negative Urine Ictotest Not Reportable Urine Urobilinogen < 2.0 Ur Leukocyte Esterase Negative Urine WBC (Auto) 12.0 H Urine RBC (Auto) 4.0 U Epithel Cells (Auto) 31.0 H Urine Mucus 2+ Salicylates Urine Opiates Screen Negative Urine Methadone Screen Negative Acetaminophen Ur Barbiturates Screen Negative Ur Phencyclidine Scrn Negative Ur Amphetamines Screen Negative U Benzodiazepines Scrn Negative Urine Cocaine Screen Negative U Marijuana (THC) Screen Positive Drugs of Abuse Note Disclamer Plasma/Serum Alcohol - Medical Decision Making 1. Acute jose with aggressive behavior required medical restraint with IM Seven immediately on arrival. She was placed in seclusion. Reassessed patient at 1910. She is maintaining airway. I renewed seclusion order. CBC chemistry unremarkable. With reported history of diabetes random glucose 195. Will recheck sugar tomorrow after breakfast urinalysis contaminated no indication for antibiotic treatment serum toxicology unremarkable. UDS positive for marijuana. ED hold in place. 1013 form completed. Critical Care Time: Yes Critical care time in (mins) excluding proc time.: 40 Critical care attestation.: If time is entered above; I have spent that time in minutes in the direct care of this critically ill patient, excluding procedure time. 40 minutes of critical care time excluding procedures were used in the care of the patient. I came immediately to the bedside upon patient's arrival. I obtained history from EMS at the bedside. I discussed treatment plan with the nursing team members. I reviewed electronic record. charge nurse called me immediately to patient's aid. I was concerned for harm to herself and staff members. She required immediate action. Patient required multiple interve ntions and reassessments. ED Disposition Clinical Impression: Bipolar disorder with severe jose Disposition: 01 HOME / SELF CARE / HOMELESS Is pt being admited?: No Does the pt Need Aspirin: No Condition: Stable Additional Instructions: OUTPATIENT MENTAL HEALTH RESOURCES [facility], [facility] Dimas Perea MD: [address] [place] [address] [place] [address] [place], [place] [id number] [place] [facility]: [employer] [address] [place] [address] [place] [address] [phone] [facility]: [facility] Healthcare: [address] [facility] [address] [place] [id number] [facility] [id number] [facility]: Brett Tripp MD: [address] [facility] [address] [facility] [id number] [facility]: [address] [place] [address] [phone] [place] CRISIS AND ACCESS LINE: Referrals: PRIMARY CAREMD [Primary Care Provider] - 3-5 Days
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
[2021-04-11 11:47] VITALS: BP 119/89
== END 2021-04-11 11:47 | disposition home or self-care (01) ==
LOC: ED 16:20
DX: F31.2 Bipolar disorder, current episode manic severe with psychotic features (principal); Z20.822 Contact with and (suspected) exposure to COVID-19; F10.20 Alcohol dependence, uncomplicated; E11.8 Type 2 diabetes mellitus with unspecified complications
CPT/HCPCS: 36415; 80053; 80307; 81001; 84703; 85025; 87086; 96372; 99284; J3486; U0003; 80320; 99291; G0480

== ENCOUNTER 2021-04-11 22:24 | Emergency (ER) | payer OTHER ==
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
[2021-04-11 23:37] LABS: Basophils % (Auto) 0.4 % (0.0-1.8); Eosinophils # (Auto) 0.2 K/mm3 (0.0-0.4); Eosinophils % (Auto) 3.6 % (0.0-4.3); Hematocrit 37.3 % (30.3-42.9); Hemoglobin 12.9 gm/dl (10.1-14.3); Lymphocytes # (Auto) 1.7 K/mm3 (1.2-5.4); Mean Corpuscular HGB Conc 35 % (30-34); Mean Corpuscular Volume 90 fl (79-97); Monocytes # (Auto) 0.7 K/mm3 (0.0-0.8); Monocytes % (Auto) 12.8 % (0.0-7.3); Platelet Count 323 K/mm3 (140-440); Red Blood Count 4.17 M/mm3 (3.65-5.03); Red Cell Distribution Width 13.1 % (13.2-15.2)
[2021-04-12 00:03] LABS: BUN/Creatinine Ratio 11; Blood Urea Nitrogen 10 mg/dL (7-17); Calcium 9.4 mg/dL (8.4-10.2); Hemolysis Index 4
[2021-04-12] MEDS ORDERED: IBUPROFEN 600 MG TAB PO ONE (01:45)
[2021-04-12] MEDS ORDERED: HYDROCORTISONE 1% CREAM 28.4GM TP ONE (04:13)
--- NOTE | 2021-04-12 04:14 | Emergency Department Report ---
Blank Doc - Documentation Documentation: Patient was requesting some hydrocortisone cream. She has a rash underneath the lower portion of her abdomen. On exam, she has some dry and flaky skin with a slightest white discoloration. There are skin excoriations from scratching. There was no evidence of secondary cellulitis. Hydrocortisone was ordered.
[2021-04-12] MEDS ORDERED: ZIPRASIDONE MESYLATE 20 MG VIAL IM ONE ×2 (07:19→07:23)
[2021-04-12 07:55] VITALS: BP 137/97
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
[2021-04-12] MEDS: clonazePAM 0.5 MG TAB PO SCH ×3 (10:25→10:44)
[2021-04-12] MEDS: risperiDONE 1 MG TAB PO SCH ×2 (10:25→10:43)
[2021-04-12] MEDS: DIVALPROEX DR 250 MG TAB PO SCH ×2 (10:29→10:41)
[2021-04-12] MEDS ORDERED: HALOPERIDOL LACTATE 5 MG/1 ML INJ IM ONE (11:03)
[2021-04-12] MEDS ORDERED: LORazepam 2 MG/ML VIAL IM ONE (11:03)
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
[2021-04-12 12:27] LABS: Amphetamine Screen,Urine Negative; Benzodiazepines Screen,Urine Negative; Bilirubin,Urine NEG (Negative); Blood,Urine NEG (Negative); Cannabinoid Screen,Urine Negative; Cocaine Screen,Urine Negative; Color,Urine Straw (Yellow); Methadone Screen,Urine Negative; Mucus,Urine FEW /HPF; Opiate Screen,Urine Negative; Protein,Urine <15 mg/dL mg/dL (Negative); Urobilinogen,Urine < 2.0 mg/dL (<2.0); WBC,Urine < 1.0 /HPF (0.0-6.0)
[2021-04-12] MEDS ORDERED: traZODone 50 MG TAB PO SCH (22:00)
== END 2021-04-12 19:30 ==
LOC: EEVIPCON 22:24 → ED 22:24
DX: F23 Brief psychotic disorder (principal); Z13.30 Encounter for screening examination for mental health and behavioral disorders, unspecified; F32.9 Major depressive disorder, single episode, unspecified; E11.9 Type 2 diabetes mellitus without complications; Z20.822 Contact with and (suspected) exposure to COVID-19; Z79.899 Other long term (current) drug therapy
CPT/HCPCS: 36415; 80048; 80307; 81001; 85025; 96372; 99285; A6250; J1630; J2060; J3486; 80320; G0480